=== PATIENT | female | born 1985 | race Caucasian/White ===

== ENCOUNTER 2017-08-29 06:57 | Inpatient (IN) | payer OTHER ==
[2017-08-29] MEDS ORDERED: Sodium Chloride 0.9% 10 ML Syringe FLUSH PRN (07:46)
[2017-08-29] MEDS ORDERED: Nalbuphine 20 MG/1 ML Amp IVPUSH PRN (07:46)
--- NOTE | 2017-08-29 07:56 | PCM.LDHP ---
L&D History of Present Illness - General Date of Service: 08/29/17 Admit Problem/Dx: Admission Diagnosis/Problem Admission Diagnosis/Problem 08/29/17 07:51 32 yo at 39 4/7 presents for IOL for SGA. BPP on 08/25/17 with 8/8 and reactive NST GBS negative A negative routine care. MFM consult at 30 weeks for SGA History of small infants. Normal movement. No LOF No VB No contractions at home - Related Data Allergies/Adverse Reactions: Allergies Allergy/AdvReac Type Severity Reaction Status Date / Time No Known Allergies Allergy Verified 08/29/17 07:46 Past Medical History Psychiatric History: Reports: Anxiety - Past Surgical History HEENT Surgical History: Reports: Oral Surgery Social & Family History - Tobacco Use Smoking Status *Q: Former Smoker - Living Situation & Occupation Living situation: Reports: H&P Review of Systems - Review of Systems: Review Of Systems: See Below General: Reports: No Symptoms HEENT: Reports: No Symptoms Pulmonary: Reports: No Symptoms Cardiovascular: Reports: No Symptoms Gastrointestinal: Reports: No Symptoms Genitourinary: Reports: No Symptoms Musculoskeletal: Reports: No Symptoms Skin: Reports: No Symptoms Psychiatric: Reports: No Symptoms Neurological: Reports: No Symptoms Hematologic/Lymphatic: Reports: No Symptoms Immunologic: Reports: No Symptoms L&D Exam - Exam Exam: See Below - OB Specific Contraction Intensity: Irritability Movement: Active Heart Tones: Present Heart Tones per Min: 135 Heart Rate (FHR) Variability: Moderate (6-25 bmp) Presentation: Vertex Estimated Weight: 3000 - Garcia Score Garcia Score Cervix Position: Posterior Garcia Score Consistency: Soft Garcia Score Effacement: 31-50% Garcia Score Dilation: 1-2 cm Garcia Score 's Station: -3 Garcia Score Total: 4 - Exam General: Alert, Oriented HEENT: Conjunctiva Clear Genitourinary: Normal external exam Extremities: Normal Inspection, No Pedal Edema Skin: Warm, Dry - Problem List (1) SNOMED Code(s): 86719490 ICD Code: Z34.90 - ENCNTR FOR SUPRVSN OF NORMAL , UNSP, UNSP TRIMESTER Status: Acute Current Visit: Yes (2) Small for gestational age fetus SNOMED Code(s): 502992632 ICD Code: EBL6935 - Status: Acute Current Visit: Yes Problem List Initiated/Reviewed/Updated: Yes Orders Last 24hrs: Active Orders 24 hr Category Date Time Status Activity as Tolerated [RC] PFP Care 08/29/17 07:46 Ordered Communication Order [RC] ASDIRECTED Care 08/29/17 07:46 Ordered Communication Order [RC] ASDIRECTED Care 08/29/17 07:46 Ordered Communication Order [RC] ASDIRECTED Care 08/29/17 07:46 Ordered Communication Order [RC] ASDIRECTED Care 08/29/17 07:46 Ordered Heart Tones [RC] ASDIRECTED Care 08/29/17 07:46 Ordered Monitoring [RC] INTERMITTENT Care 08/29/17 07:46 Ordered Notify Provider [RC] ASDIRECTED Care 08/29/17 07:46 Ordered Notify Provider [RC] PFP Care 08/29/17 07:46 Ordered Notify Provider [RC] PRN Care 08/29/17 07:46 Ordered Peripheral IV Care [RC] . DIRECTED Care 08/29/17 07:46 Ordered Vaginal Exam [RC] ASDIRECTED Care 08/29/17 07:46 Ordered Vital Signs [RC] ASDIRECTED Care 08/29/17 07:46 Ordered Vital Signs [RC] PER UNIT ROUTINE Care 08/29/17 07:46 Ordered Regular Diet [DIET] Diet 08/29/17 Breakfast Active CBC W/O DIFF,HEMOGRAM [HEME] Stat Lab 08/29/17 07:46 Ordered Lactated Ringers [Ringers, Lactated] 1,000 ml Med 08/29/17 08:00 Ordered IV ASDIRECTED Lactated Ringers [Ringers, Lactated] 1,000 ml Med 08/29/17 08:00 Ordered IV ASDIRECTED Misoprostol [Cytotec] Med 08/29/17 07:46 Ordered 25 mcg VAG Q4H PRN Nalbuphine [Nubain] Med 08/29/17 07:46 Ordered 10 mg IVPUSH Q2H PRN Oxytocin/Lactated Ringers [Pitocin in LR 10 Units/1,000 Med 08/29/17 08:00 Ordered ML] 10 unit in 1,000 ml IV .CONTINUOUS Oxytocin/Lactated Ringers [Pitocin in LR 10 Units/1,000 Med 08/29/17 08:00 Ordered ML] 10 unit in 1,000 ml IV TITRATE Sodium Chloride 0.9% [Saline Flush] Med 08/29/17 07:46 Ordered 10 ml FLUSH ASDIRECTED PRN Electronic Heart Tones Ext w TOCO [WOMSER] Ot 08/29/17 07:46 Ordered Routine Electronic Heart Tones Internal [WOMSER] Per Unit Ot 08/29/17 07:46 Ordered Routine Medication Administration Instruction [OM.PC] Ot 08/29/17 08:00 Ordered ASDIRECTED Peripheral IV Insertion Adult [OM.PC] Routine Ot 08/29/17 07:46 Ordered Peripheral IV Insertion Adult [OM.PC] Routine Ot 08/29/17 07:46 Ordered Resuscitation Status Routine Resus Stat 08/29/17 07:46 Ordered Assessment/Plan Comment:: 32 yo at 39 4/7 presents for IOL for SGA. GBS negative. Cytotec induction will proceed to pitocin desires epidural-CBC ordered. Anticipate normal vaginal delivery.
[2017-08-29] MEDS ORDERED: Oxytocin/Lactated Ringers 10 UNIT/1,000 ML BAG IV SCH ×2 (08:00)
[2017-08-29] MEDS ORDERED: Lactated Ringers 1,000 ML IV SCH (08:00)
[2017-08-29] MEDS: Misoprostol 25 MCG (1/4 of 100 MCG) Tab VAG PRN ×2 (08:11→12:16)
[2017-08-29] MEDS ORDERED: ePHEDrine 50 MG/ML SDV IVPUSH PRN (11:59)
[2017-08-29] MEDS ORDERED: Ondansetron 4 MG/2 ML SDV IVPUSH PRN (11:59)
[2017-08-29] MEDS ORDERED: diphenhydrAMINE 50 MG/ML SDV IVPUSH PRN (11:59)
[2017-08-29] MEDS ORDERED: fentaNYL 100 MCG/2 ML SDV EPIDUR PRN (11:59)
[2017-08-29] MEDS ORDERED: Bupivacaine/fentaNYL/NS 100 ML Bag EPIDUR SCH (12:00)
--- NOTE | 2017-08-29 13:00 | PCM.PREANE ---
Preanesthetic Assessment - Anesthesia/Transfusion/Family Hx Anesthesia History: Prior Anesthesia Without Reaction Type of Anesthesia Reaction: Other (see below) (last epidural bad experience - painful- student did it) Family History of Anesthesia Reaction: No Transfusion History: No Prior Transfusion(s) - Review of Systems General: No Symptoms Pulmonary: No Symptoms Cardiovascular: No Symptoms Gastrointestinal: No Symptoms Neurological: No Symptoms Other: Reports: None - Physical Assessment O2 Sat by Pulse Oximetry: 95 Respiratory Rate: 16 Vital Signs: Last Vital Signs Temp 97.8 F 08/29/17 07:46 Pulse 81 08/29/17 07:46 Resp 16 08/29/17 07:46 BP 115/62 08/29/17 07:46 Pulse Ox 95 08/29/17 07:46 Height: 5 ft 9 in Weight: 83.007 kg ASA Class: 2 Mental Status: Alert & Oriented x3 Airway Class: Mallampati = 1 Dentition: Reports: Normal Dentition Thyro-Mental Finger Breadths: 3 Mouth Opening Finger Breadths: 3 ROM/Head Extension: Full Lungs: Clear to Auscultation, Normal Respiratory Effort Cardiovascular: Regular Rate, Regular Rhythm - Lab Values: Laboratory Last Values WBC 8.49 K/mm3 (3.98-10.04) 08/29/17 08:05 RBC 3.91 M/mm3 (3.98-5.22) L 08/29/17 08:05 Hgb 12.3 gm/L (11.2-15.7) 08/29/17 08:05 Hct 36.3 % (34.1-44.9) 08/29/17 08:05 MCV 92.8 fl (79.4-94.8) 08/29/17 08:05 MCH 31.5 pg (25.6-32.2) 08/29/17 08:05 MCHC 33.9 g/dl (32.2-35.5) 08/29/17 08:05 RDW Std Deviation 45.1 fL (36.4-46.3) 08/29/17 08:05 Plt Count 245 K/mm3 (182-369) 08/29/17 08:05 MPV 9.6 fl (9.4-12.3) 08/29/17 08:05 - Allergies Allergies/Adverse Reactions: Allergies Allergy/AdvReac Type Severity Reaction Status Date / Time No Known Allergies Allergy Verified 08/29/17 07:46 - Blood Blood Available: No - Acknowledgements Anesthesia Type Planned: Epidural Pt an Appropriate Candidate for the Planned Anesthesia: Yes Alternatives and Risks of Anesthesia Discussed w Pt/Guardian: Yes Pt/Guardian Understands and Agrees with Anesthesia Plan: Yes PreAnesthesia Questionnaire - Past Health History Medical/Surgical History: Denies Medical/Surgical History Cardiovascular History: Reports: None Respiratory History: Reports: None Gastrointestinal History: Reports: None [employer] History: Reports: : 3 (39 5 weeks) Para: 2 Psychiatric History: Reports: Anxiety (history) Oncologic (Cancer) History: Reports: None - Past Surgical History HEENT Surgical History: Reports: Oral Surgery - History Comment History Comment: vits - SUBSTANCE USE Smoking Status *Q: Former Smoker (quit 9 months ago) Tobacco Use Within Last Twelve Months: Cigarettes Second Hand Smoke Exposure: No Days Per Week of Alcohol Use: 0 Recreational Drug Use History: No - CURRENT (IN HOUSE) MEDS Current Meds: Current Medications Diphenhydramine HCl (Benadryl) 25 mg IVPUSH Q6H PRN PRN Reason: Pruritis Ephedrine Sulfate (Ephedrine Sulfate) 5 mg IVPUSH ASDIRECTED PRN PRN Reason: Hypotension Fentanyl (Sublimaze) 100 mcg EPIDUR ONETIME PRN PRN Reason: Pain Fentanyl/Bupivacaine HCl (Fentanyl/Bupivacaine/Ns 2 Mcg-0.125% 100 Ml) 100 ml EPIDUR ASDIRECTED ASYA Lactated Ringer's (Ringers, Lactated) 1,000 mls @ 100 mls/hr IV ASDIRECTED ASYA Lactated Ringer's (Ringers, Lactated) 1,000 mls @ 40 mls/hr IV ASDIRECTED ASYA Oxytocin/Lactated Ringer's (Pitocin In Lr 10 Units/1,000 Ml) 10 unit in 1,000 mls @ 500 mls/hr IV .CONTINUOUS ASYA Oxytocin/Lactated Ringer's (Pitocin In Lr 10 Units/1,000 Ml) 10 unit in 1,000 mls @ 12 mls/hr IV TITRATE ASYA; 2 MUNITS/MIN PRN Reason: Protocol Misoprostol (Cytotec) 25 mcg VAG Q4H PRN PRN Reason: cervical ripening Last Admin: 08/29/17 12:16 Dose: 25 mcg Nalbuphine HCl (Nubain) 10 mg IVPUSH Q2H PRN PRN Reason: Pain (moderate 4-6) Ondansetron HCl (Zofran) 4 mg IVPUSH ONETIME PRN PRN Reason: Nausea/Vomiting Sodium Chloride (Saline Flush) 10 ml FLUSH ASDIRECTED PRN PRN Reason: Keep Vein Open
[2017-08-29] MEDS: Lactated Ringers 1,000 ML IV SCH ×3 (16:32→21:05)
[2017-08-29] MEDS ORDERED: Bupivacaine 0.25% 10 ML SDV ONE (22:22)
[2017-08-29] MEDS ORDERED: Ibuprofen 600 MG Tab PO PRN (23:36)
[2017-08-29] MEDS ORDERED: Benzocaine/Menthol 20%-0.5% Spray 56 GM Canister TOP PRN (23:36)
[2017-08-29] MEDS ORDERED: Docusate Sodium 100 MG Cap PO PRN (23:36)
--- NOTE | 2017-08-29 23:45 | PCM.DEL ---
L & D Note - General Info Date of Service: 08/29/17 Mother's Due Date: 09/01/17 - Delivery Note Labor: Augmented by Oxytocin Cervical Ripening Method: Prostaglandin E2 Delivery Outcome: Livebirth Infant Delivery Method: Spontaneous Vaginal Delivery-Single Infant Delivery Mode: Spontaneous Presentation: Vertex Nuchal Cord: None Prep: Povidone-Iodine (Betadine Anesthesia Type: Epidural Episiotomy Type: None Laceration: None Placenta: Intact, Spontaneous Cord: 3 Vessels Estimated Blood Loss: 300 Resuscitation Needed: No : Stimulated Score 1 min: 8 Score 5 min: 9 Second Stage Interventions: Reports: Pushing Effectively - General Info Admission Dx/Problem (Free Text): 32 yo G3now P3 delivered a viable female infant weighing 6 lbs 5 ounces over an intact perineum. Apgars 8 and 9. induction of labor without complications. - Patient Data Vitals - Most Recent: Last Vital Signs Temp 36.6 C 08/29/17 07:46 Pulse 81 08/29/17 07:46 Resp 16 08/29/17 12:59 BP 115/62 08/29/17 07:46 Pulse Ox 95 08/29/17 12:59 Weight - Most Recent: 83.007 kg Lab Results Last 24 Hours: Laboratory Results - last 24 hr 08/29/17 Range/Units 08:05 WBC 8.49 (3.98-10.04) K/mm3 RBC 3.91 L (3.98-5.22) M/mm3 Hgb 12.3 (11.2-15.7) gm/L Hct 36.3 (34.1-44.9) % MCV 92.8 (79.4-94.8) fl MCH 31.5 (25.6-32.2) pg MCHC 33.9 (32.2-35.5) g/dl RDW Std Deviation 45.1 (36.4-46.3) fL Plt Count 245 (182-369) K/mm3 MPV 9.6 (9.4-12.3) fl Med Orders - Current: Current Medications Benzocaine/Menthol (Dermoplast Pain Relief [place]) 0 gm TOP ASDIRECTED PRN PRN Reason: Perineal Comfort Measure Diphenhydramine HCl (Benadryl) 25 mg IVPUSH Q6H PRN PRN Reason: Pruritis Docusate Sodium (Colace) 100 mg PO BID PRN PRN Reason: Constipation Ephedrine Sulfate (Ephedrine Sulfate) 5 mg IVPUSH ASDIRECTED PRN PRN Reason: Hypotension Fentanyl (Sublimaze) 100 mcg EPIDUR ONETIME PRN PRN Reason: Pain Last Admin: 08/29/17 20:39 Dose: 100 mcg Fentanyl/Bupivacaine HCl (Fentanyl/Bupivacaine/Ns 2 Mcg-0.125% 100 Ml) 100 ml EPIDUR ASDIRECTED ASYA Last Admin: 08/29/17 20:39 Dose: 100 ml Lactated Ringer's (Ringers, Lactated) 1,000 mls @ 100 mls/hr IV ASDIRECTED ASYA Last Admin: 08/29/17 21:05 Dose: 100 mls/hr Lactated Ringer's (Ringers, Lactated) 1,000 mls @ 40 mls/hr IV ASDIRECTED ASYA Oxytocin/Lactated Ringer's (Pitocin In Lr 10 Units/1,000 Ml) 10 unit in 1,000 mls @ 500 mls/hr IV .CONTINUOUS ASYA Oxytocin/Lactated Ringer's (Pitocin In Lr 10 Units/1,000 Ml) 10 unit in 1,000 mls @ 12 mls/hr IV TITRATE ASYA; 2 MUNITS/MIN PRN Reason: Protocol Last Titration: 08/29/17 18:32 Dose: 6 munits/min, 36 mls/hr Ibuprofen (Motrin) 600 mg PO Q4H PRN PRN Reason: Mild pain or fever Misoprostol (Cytotec) 25 mcg VAG Q4H PRN PRN Reason: cervical ripening Last Admin: 08/29/17 12:16 Dose: 25 mcg Nalbuphine HCl (Nubain) 10 mg IVPUSH Q2H PRN PRN Reason: Pain (moderate 4-6) Ondansetron HCl (Zofran) 4 mg IVPUSH ONETIME PRN PRN Reason: Nausea/Vomiting Prenat Multivit/[place]/Iron/Folic Ac ( Plus Iron) 1 each PO DAILY ASYA Sodium Chloride (Saline Flush) 10 ml FLUSH ASDIRECTED PRN PRN Reason: Keep Vein Open - Problem List & Annotations (1) SNOMED Code(s): 30420442 Code(s): Z34.90 - ENCNTR FOR SUPRVSN OF NORMAL , UNSP, UNSP TRIMESTER Status: Acute Current Visit: Yes (2) Small for gestational age fetus SNOMED Code(s): 118863712 Code(s): KXN4628 - Status: Resolved Current Visit: Yes (3) Vaginal delivery SNOMED Code(s): 997154287 Code(s): O80 - ENCOUNTER FOR FULL-TERM UNCOMPLICATED DELIVERY Status: Resolved Current Visit: Yes - Problem List Review Problem List Initiated/Reviewed/Updated: Yes - My Orders Last 24 Hours: My Active Orders 08/29/17 07:46 Activity as Tolerated [RC] PFP Communication Order [RC] ASDIRECTED Communication Order [RC] ASDIRECTED Communication Order [RC] ASDIRECTED Communication Order [RC] ASDIRECTED Heart Tones [RC] ASDIRECTED Monitoring [RC] INTERMITTENT Notify Provider [RC] ASDIRECTED Notify Provider [RC] PFP Notify Provider [RC] PRN Peripheral IV Care [RC] . DIRECTED Vital Signs [RC] ASDIRECTED Vital Signs [RC] PER UNIT ROUTINE Misoprostol [Cytotec] 25 mcg VAG Q4H PRN Nalbuphine [Nubain] 10 mg IVPUSH Q2H PRN Sodium Chloride 0.9% [Saline Flush] 10 ml FLUSH ASDIRECTED PRN Electronic Heart Tones Ext w TOCO [WOMSER] Routine Electronic Heart Tones Internal [WOMSER] Per Unit Routine Peripheral IV Insertion Adult [OM.PC] Routine Peripheral IV Insertion Adult [OM.PC] Routine Resuscitation Status Routine 08/29/17 08:00 Lactated Ringers [Ringers, Lactated] 1,000 ml IV ASDIRECTED Lactated Ringers [Ringers, Lactated] 1,000 ml IV ASDIRECTED Oxytocin/Lactated Ringers [Pitocin in LR 10 Units/1,000 ML] 10 unit in 1,000 ml IV .CONTINUOUS Oxytocin/Lactated Ringers [Pitocin in LR 10 Units/1,000 ML] 10 unit in 1,000 ml IV TITRATE Medication Administration Instruction [OM.PC] ASDIRECTED 08/29/17 23:35 Patient Status Manage Transfer [TRANSFER] Routine 08/29/17 23:36 Patient Status [ADT] Routine Activity as Tolerated [RC] PER UNIT ROUTINE Vital Signs [RC] ASDIRECTED Benzocaine/Menthol [Dermoplast Pain Relief [place]] See Dose Instructions TOP ASDIRECTED PRN Docusate Sodium [Colace] 100 mg PO BID PRN Ibuprofen [Motrin] 600 mg PO Q4H PRN Assess Lochia [WOMSER] Per Unit Routine Assess Uterine Involution [WOMSER] Per Unit Routine Breast Pump [WOMSER] Per Unit Routine Medication Administration Instruction [OM.PC] Routine Perineal Care [OM.PC] Per Unit Routine Sitz Bath [OM.PC] Per Unit Routine 08/29/17 23:45 Heat Therapy [OM.PC] PRN 08/29/17 Breakfast Regular Diet [DIET] 08/30/17 06:00 HEMOGLOBIN/HEMATOCRIT,HH [HEME] Timed 08/30/17 09:00 Vit with Ca/FA/Iron [ Plus Iron] 1 each PO DAILY 08/30/17 23:45 Heat Therapy [OM.PC] PRN
[2017-08-30] MEDS ORDERED: Prenatal Multivitamin with Calcium/Folic Acid/Iron Tab PO SCH (09:00)
--- NOTE | 2017-08-30 09:37 | PCM48HPAN ---
Post Anesthesia Note - EVALUATION WITHIN 48HRS OF ANESTHETIC Vital Signs in Normal Range: Yes Patient Participated in Evaluation: Yes Respiratory Function Stable: Yes Airway Patent: Yes Cardiovascular Function Stable: Yes Hydration Status Stable: Yes Pain Control Satisfactory: Yes Nausea and Vomiting Control Satisfactory: Yes Mental Status Recovered: Yes
--- NOTE | 2017-08-30 10:40 | PCM.DCSUM1 ---
Discharge Summary - Hospital Course Free Text/Narrative:: 32 yo s/p normal vaginal delivery at 39 weeks 5 days gestation. GBS neg Mother A neg, O pos ambulating well, tolerating diet, pain controlled. Rhogam will be administered prior to d/c Pt desires to be discharged tonight. she understands this will be after 1130 pm. - Discharge Data Discharge Date: 08/30/17 Discharge Disposition: Home, Self-Care 01 Condition: Good - Discharge Diagnosis/Problem(s) (1) SNOMED Code(s): 53334759 ICD Code: Z34.90 - ENCNTR FOR SUPRVSN OF NORMAL , UNSP, UNSP TRIMESTER Status: Acute Current Visit: Yes Qualifiers: Weeks of gestation: 39 weeks Qualified Code(s): Z3A.39 - 39 weeks gestation of (2) Small for gestational age fetus SNOMED Code(s): 883982377 ICD Code: PPN0292 - Status: Resolved Current Visit: Yes (3) Vaginal delivery SNOMED Code(s): 719015783 ICD Code: O80 - ENCOUNTER FOR FULL-TERM UNCOMPLICATED DELIVERY Status: Acute Current Visit: Yes - Patient Instructions Diet: Usual Diet as Tolerated Activity: As Tolerated Activity, Other: Pelvic rest for 6 weeks (no intercourse or tampons) Driving: May Drive Today Showering/Bathing: May Shower Notify Provider of: Fever, Increased Pain, Swelling and Redness, Drainage, Nausea and/or Vomiting - Discharge Plan Home Medications: Home Meds Docusate Sodium [Colace] 100 mg PO BID PRN cap 08/30/17 [Rx] Ibuprofen [IJD: Ibuprofen] 600 mg PO Q4H PRN tablet 08/30/17 [Rx] Vit with Ca/FA/Iron [ Plus Iron] 1 each PO DAILY tablet [Rx] Patient Handouts: Vaginal Delivery, Home Care Instructions for Mom Referrals: Candida Lam MD [Primary Care Provider] - (6-8 weeks ) - General Info Date of Service: 08/30/17 Functional Status: Reports: Pain Controlled, Tolerating Diet, Ambulating, Urinating - Patient Data Vitals - Most Recent: Last Vital Signs Temp 36.6 C 08/29/17 07:46 Pulse 81 08/29/17 07:46 Resp 16 08/29/17 12:59 BP 115/62 08/29/17 07:46 Pulse Ox 95 08/29/17 12:59 Weight - Most Recent: 83.007 kg I&O - Last 24 hours: Intake & Output 08/29/17 08/30/17 08/30/17 22:59 06:59 14:59 Intake Total 0 Balance 0 Lab Results - Last 24 hrs: Laboratory Results - last 24 hr 08/30/17 08/30/17 Range/Units 06:55 06:55 Hgb 12.1 (11.2-15.7) gm/L Hct 36.6 (34.1-44.9) % Blood Type A NEGATIVE Gel Antibody Screen Negative Screen 0 ros/5 flds - neg RhIG Candidate? Yes Rhogam Indicated Yes, baby rh pos H Med Orders - Current: Current Medications Benzocaine/Menthol (Dermoplast Pain Relief [place]) 0 gm TOP ASDIRECTED PRN PRN Reason: Perineal Comfort Measure Docusate Sodium (Colace) 100 mg PO BID PRN PRN Reason: Constipation Ibuprofen (Motrin) 600 mg PO Q4H PRN PRN Reason: Mild pain or fever Prenat Multivit/[place]/Iron/Folic Ac ( Plus Iron) 1 each PO DAILY ASYA Discontinued Medications Bupivacaine HCl (Sensorcaine-Mpf 0.25%) 10 ml .ROUTE .STK-MED ONE Stop: 08/29/17 22:23 Diphenhydramine HCl (Benadryl) 25 mg IVPUSH Q6H PRN PRN Reason: Pruritis Ephedrine Sulfate (Ephedrine Sulfate) 5 mg IVPUSH ASDIRECTED PRN PRN Reason: Hypotension Fentanyl (Sublimaze) 100 mcg EPIDUR ONETIME PRN PRN Reason: Pain Last Admin: 08/29/17 20:39 Dose: 100 mcg Fentanyl/Bupivacaine HCl (Fentanyl/Bupivacaine/Ns 2 Mcg-0.125% 100 Ml) 100 ml EPIDUR ASDIRECTED [facility] Last Admin: 08/29/17 20:39 Dose: 100 ml Lactated Ringer's (Ringers, Lactated) 1,000 mls @ 100 mls/hr IV ASDIRECTED [facility] Last Admin: 08/29/17 21:05 Dose: 100 mls/hr Lactated Ringer's (Ringers, Lactated) 1,000 mls @ 40 mls/hr IV ASDIRECTED ASYA Oxytocin/Lactated Ringer's (Pitocin In Lr 10 Units/1,000 Ml) 10 unit in 1,000 mls @ 500 mls/hr IV .CONTINUOUS ASYA Oxytocin/Lactated Ringer's (Pitocin In Lr 10 Units/1,000 Ml) 10 unit in 1,000 mls @ 12 mls/hr IV TITRATE ASYA; 2 MUNITS/MIN PRN Reason: Protocol Last Titration: 08/29/17 18:32 Dose: 6 munits/min, 36 mls/hr Misoprostol (Cytotec) 25 mcg VAG Q4H PRN PRN Reason: cervical ripening Last Admin: 08/29/17 12:16 Dose: 25 mcg Nalbuphine HCl (Nubain) 10 mg IVPUSH Q2H PRN PRN Reason: Pain (moderate 4-6) Ondansetron HCl (Zofran) 4 mg IVPUSH ONETIME PRN PRN Reason: Nausea/Vomiting Sodium Chloride (Saline Flush) 10 ml FLUSH ASDIRECTED PRN PRN Reason: Keep Vein Open *Q Meaningful Use (DIS) - VTE *Q VTE Criteria *Q: - Stroke *Q Stroke Criteria *Q: - AMI *Q AMI Criteria *Q: - General Info Date of Service: 08/30/17 - Patient Data Vital Signs - Most Recent: Last Vital Signs Temp 36.6 C 08/29/17 07:46 Pulse 81 08/29/17 07:46 Resp 16 08/29/17 12:59 BP 115/62 08/29/17 07:46 Pulse Ox 95 08/29/17 12:59 Weight - Most Recent: 83.007 kg I&O - Last 24 Hours: Intake & Output 08/29/17 08/30/17 08/30/17 22:59 06:59 14:59 Intake Total 0 Balance 0 Lab Results - Last 24 Hours: Laboratory Results - last 24 hr 08/30/17 08/30/17 Range/Units 06:55 06:55 Hgb 12.1 (11.2-15.7) gm/L Hct 36.6 (34.1-44.9) % Blood Type A NEGATIVE Gel Antibody Screen Negative Screen 0 ros/5 flds - neg RhIG Candidate? Yes Rhogam Indicated Yes, baby rh pos H Med Orders - Current: Current Medications Benzocaine/Menthol (Dermoplast Pain Relief [place]) 0 gm TOP ASDIRECTED PRN PRN Reason: Perineal Comfort Measure Docusate Sodium (Colace) 100 mg PO BID PRN PRN Reason: Constipation Ibuprofen (Motrin) 600 mg PO Q4H PRN PRN Reason: Mild pain or fever Prenat Multivit/[place]/Iron/Folic Ac ( Plus Iron) 1 each PO DAILY ASYA Discontinued Medications Bupivacaine HCl (Sensorcaine-Mpf 0.25%) 10 ml .ROUTE .STK-MED ONE Stop: 08/29/17 22:23 Diphenhydramine HCl (Benadryl) 25 mg IVPUSH Q6H PRN PRN Reason: Pruritis Ephedrine Sulfate (Ephedrine Sulfate) 5 mg IVPUSH ASDIRECTED PRN PRN Reason: Hypotension Fentanyl (Sublimaze) 100 mcg EPIDUR ONETIME PRN PRN Reason: Pain Last Admin: 08/29/17 20:39 Dose: 100 mcg Fentanyl/Bupivacaine HCl (Fentanyl/Bupivacaine/Ns 2 Mcg-0.125% 100 Ml) 100 ml EPIDUR ASDIRECTED ASYA Last Admin: 08/29/17 20:39 Dose: 100 ml Lactated Ringer's (Ringers, Lactated) 1,000 mls @ 100 mls/hr IV ASDIRECTED ASYA Last Admin: 08/29/17 21:05 Dose: 100 mls/hr Lactated Ringer's (Ringers, Lactated) 1,000 mls @ 40 mls/hr IV ASDIRECTED ASYA Oxytocin/Lactated Ringer's (Pitocin In Lr 10 Units/1,000 Ml) 10 unit in 1,000 mls @ 500 mls/hr IV .CONTINUOUS ASYA Oxytocin/Lactated Ringer's (Pitocin In Lr 10 Units/1,000 Ml) 10 unit in 1,000 mls @ 12 mls/hr IV TITRATE ASYA; 2 MUNITS/MIN PRN Reason: Protocol Last Titration: 08/29/17 18:32 Dose: 6 munits/min, 36 mls/hr Misoprostol (Cytotec) 25 mcg VAG Q4H PRN PRN Reason: cervical ripening Last Admin: 08/29/17 12:16 Dose: 25 mcg Nalbuphine HCl (Nubain) 10 mg IVPUSH Q2H PRN PRN Reason: Pain (moderate 4-6) Ondansetron HCl (Zofran) 4 mg IVPUSH ONETIME PRN PRN Reason: Nausea/Vomiting Sodium Chloride (Saline Flush) 10 ml FLUSH ASDIRECTED PRN PRN Reason: Keep Vein Open - Infant Interaction Infant Disposition, : [place] in Room with Family Interaction: Holding Infant Infant Feeding: Bottle Fed Infant Support Person: - Recovery Exam Fundal Tone: Firm Fundal Level: At Umbilicus Fundal Placement: Midline Lochia Amount: Small Lochia Color: Rubra/Red Perineum Description: Intact, Minimal Bruising/Swelling Episiotomy/Laceration: None Bladder Status: Voiding - Exam General: Alert, Oriented Extremities: Normal Inspection, No Pedal Edema
== END 2017-08-30 23:35 | disposition home or self-care (01) | DRG 775 ==
LOC: JD.OB 06:57 → OBSVTOIN 23:15 → JD.OB 23:15
PROVIDERS: ADMIT Family Medicine; ATTEND Family Medicine
PROC: 10E0XZZ Delivery of Products of Conception, External Approach (ICD-10-PCS; principal; 2017-08-29)
PROC: 00HU33Z Insertion of Infusion Device into Spinal Canal, Percutaneous Approach (ICD-10-PCS; 2017-08-29)
PROC: 3E0R3BZ Introduction of Anesthetic Agent into Spinal Canal, Percutaneous Approach (ICD-10-PCS; 2017-08-29)
DX: O36.5930 Maternal care for other known or suspected poor fetal growth, third trimester, not applicable or unspecified (principal); Z3A.39 39 weeks gestation of pregnancy; Z37.0 Single live birth; Z87.891 Personal history of nicotine dependence
CPT/HCPCS: 36415; 51702; 59409; 85014; 85018; 85027; 85461; 86850; 86900; 86901; A9270-GY; J2590; J2790; J3010; J7120

== ENCOUNTER 2022-01-25 19:23 | Emergency (ER) | payer BC, OTHER ==
[2022-01-25] MEDS ORDERED: Sodium Chloride 0.9% 1,000 ML IV SCH (21:00)
[2022-01-25 21:44] LABS: ESTIMATED GFR 75 mL/min (>60)
[2022-01-25 21:45] LABS: ACETAMINOPHEN 0 ug/mL (10-30)
== END 2022-01-26 12:35 ==
LOC: JD.ED 19:23
DX: F39 Unspecified mood [affective] disorder (principal); F29 Unspecified psychosis not due to a substance or known physiological condition; Z87.891 Personal history of nicotine dependence; Y90.0 Blood alcohol level of less than 20 mg/100 ml; Z20.822 Contact with and (suspected) exposure to COVID-19
CPT/HCPCS: 36415; 80053; 80143; 80179; 80306; 80307; 81025; 84443; 85025; 87635; 93005; 96360; 96361; 99285; J7030; U0002

== ENCOUNTER 2022-02-01 08:38 | Emergency (ER) | payer BC | END 2022-02-01 09:12 | LOC: JD.ED 08:38 | DX: Z13.89 Encounter for screening for other disorder (principal) | CPT/HCPCS: 99283 ==

== ENCOUNTER 2022-02-04 12:49 | Emergency (ER) | payer BC ==
[2022-02-04] MEDS ORDERED: OLANZapine 10 MG Vial IM ONE (13:01)
[2022-02-04 14:04] LABS: ESTIMATED GFR 85 mL/min (>60)
[2022-02-04 14:05] LABS: ACETAMINOPHEN 0 ug/mL (10-30)
== END 2022-02-04 15:45 ==
LOC: JD.ED 12:49 → SUPCPDRO 12:49 → JD.ED 15:45
DX: F32.89 Other specified depressive episodes (principal)
CPT/HCPCS: 36415; 80053; 80143; 80179; 80306; 80307; 84443; 84703; 85025; 96372; 99285; J3490

== ENCOUNTER 2022-10-05 10:24 | Emergency (ER) | payer BC ==
[2022-10-05] MEDS ORDERED: OLANZapine 10 MG Vial IM ONE ×3 (11:07→17:30)
[2022-10-05] MEDS ORDERED: LORazepam 2 MG/ML SDV IM ONE ×2 (11:12→13:10)
[2022-10-05] MEDS ORDERED: diphenhydrAMINE 50 MG/ML SDV IM ONE (11:17)
[2022-10-05] MEDS ORDERED: LORazepam 2 MG/ML SDV ONE (13:11)
[2022-10-05] MEDS ORDERED: LORazepam 2 MG/ML SDV IM PRN (15:03)
[2022-10-05] MEDS ORDERED: LORazepam 1 MG Tab PO PRN (15:03)
== END 2022-10-05 20:30 ==
LOC: JD.ED 10:24
DX: F23 Brief psychotic disorder (principal); F39 Unspecified mood [affective] disorder; F15.10 Other stimulant abuse, uncomplicated; F91.8 Other conduct disorders; Z20.822 Contact with and (suspected) exposure to COVID-19
CPT/HCPCS: 36415; 80053; 80143; 80178; 80179; 80306; 80307; 81025; 84443; 85025; 87635; 96372; 99285; J1200; J2060; J2405; 99283; U0002